=== PATIENT | female | born 1985 | race Caucasian/White ===

== ENCOUNTER → 2016-12-04 | Outpatient (CLI) | payer OTHER ==
[~2016-12-04] MED LIST: PRENTAB26 PO
[2016-12-04 18:29] LABS: URINE APPEARANCE CLEAR (CLEAR); URINE BILIRUBIN NEG (NEG); URINE COLOR YELLOW; URINE NITRITE NEG (NEG); URINE SPECIFIC GRAVITY 1.007 (1.000-1.030); UROBILINOGEN NEG (NEG)
[2016-12-04 18:41] LABS: MANUAL MICROSCOPIC REQUIRED? NO; REVIEW REQ? NO
== END | disposition home or self-care (01) ==
LOC: C.LABSPEC 18:07
PROVIDERS: ATTEND Obstetrics & Gynecology
DX: Z34.90 Encounter for supervision of normal pregnancy, unspecified, unspecified trimester (principal)

== ENCOUNTER → 2016-12-12 | Outpatient (CLI) | payer OTHER ==
[2016-12-12 15:38] LABS: BASO % 0.1 %; BASO ABS # 0.01 K/uL (0-0.2); COMPLETE YES; EOS % 0.9 %; HEMATOCRIT 34.7 % (37-47); IG% 0.2 %; LYMPH % 20.2 %; LYMPH ABS # 2.05 K/uL (1.2-3.4); MEAN CELL VOLUME 81.6 fL (80-100); MEAN CORPUSCULAR HEMOGLOBIN 28.7 pg (25-34); MEAN CORPUSCULAR HGB CONC 35.2 g/dl (32-36); MEAN PLATELET VOLUME 9.3 fL (7.4-10.4); MONO % 4.1 %; NEUT % 74.5 %; PLATELET COUNT 207 K/uL (130-400); RED BLOOD COUNT 4.25 M/uL (4.2-5.4); WHITE BLOOD COUNT 10.13 K/uL (4.8-10.8)
[2016-12-12 16:15] LABS: GTGD 50 Grams
[2016-12-15 00:33] LABS: CHLAMYDIA TRACH RNA*** NOT DETECTED (NOT DETECTED); GC (NEIS GONORRHOEAE)RNA** NOT DETECTED (NOT DETECTED)
== END | disposition home or self-care (01) ==
LOC: C.LAB1850 14:43
PROVIDERS: ATTEND Obstetrics & Gynecology
DX: Z34.82 Encounter for supervision of other normal pregnancy, second trimester (principal)

== ENCOUNTER → 2017-01-31 | Outpatient (CLI) | payer OTHER ==
[2017-01-31 14:23] LABS: URINE APPEARANCE CLEAR (CLEAR); URINE BILIRUBIN NEG (NEG); URINE COLOR YELLOW; URINE NITRITE NEG (NEG); URINE SPECIFIC GRAVITY 1.004 (1.000-1.030); UROBILINOGEN NEG (NEG)
[2017-01-31 14:27] LABS: MANUAL MICROSCOPIC REQUIRED? NO; REVIEW REQ? NO
[2017-01-31 14:44] LABS: HEMATOCRIT 33.4 % (37-47)
[2017-01-31 19:26] LABS: GTGD 50 Grams
== END | disposition home or self-care (01) ==
LOC: C.LAB1850 12:36
PROVIDERS: ATTEND Obstetrics & Gynecology
DX: Z34.83 Encounter for supervision of other normal pregnancy, third trimester (principal)

== ENCOUNTER → 2017-03-29 | Outpatient (CLI) | payer OTHER | END | disposition home or self-care (01) | LOC: C.LABSPEC 11:15 | PROVIDERS: ATTEND Obstetrics & Gynecology | DX: Z34.83 Encounter for supervision of other normal pregnancy, third trimester (principal) ==

== ENCOUNTER 2017-04-17 08:21 | Inpatient (IN) | payer OTHER ==
[~2017-04-17] VITALS: Ht 157.5 cm; Wt 82.3 kg
[2017-04-17] MEDS ORDERED: BENZOCAINE 20% AER SPR 82.5 GM CAN EXT PRN (08:30)
[2017-04-17] MEDS ORDERED: LANOLIN OINT EXT PRN ×2 (08:30)
[2017-04-17] MEDS ORDERED: HYDROCORTISONE ACETATE 25 MG SUPP PR PRN (08:30)
[2017-04-17] MEDS ORDERED: ACETAMINOPHEN 325 MG TAB PO PRN (08:30)
[2017-04-17] MEDS ORDERED: SUPERCREAM 0.870 % 15GM JAR EXT PRN (08:30)
[2017-04-17] MEDS ORDERED: OXYTOCIN 30 UNITS/500ML NSS IV PRN (08:30)
[2017-04-17] MEDS ORDERED: OXYCODONE/ACETAMINOPHEN 5-325 TAB PO PRN (08:30)
--- NOTE | 2017-04-17 08:39 | Vaginal Delivery Summary ---
Vaginal Delivery Summary Patient arrived to L&D in wheelchair in knee-chest position involuntarily pushing. She was moved to a bed, confirmed to be complete and +2, and quickly prepped for delivery. Over the next few contractions she pushed to deliver her male in DOP position with moderate meconium noted in the fluid. The shoulders delivered easily followed by the remainder of the body. Cord was long , and was doubly clamped and cut. Placenta delivered spontaneously and was intact with a 3VC. No lacerations of cervix, vagina or perineum. Fundus firm and 10u IM pitocin given due to inability to obtain IV access prior to this point due to rapid delivery. Mother and infant in good condition.
[2017-04-17] MEDS ORDERED: PATIENT'S ALLERGY INFO NEEDS ENTERED SCH (08:45)
[2017-04-17 09:09] VITALS: BMI 33.2
[2017-04-17] MEDS: IBUPROFEN 600 MG TAB PO PRN ×3 (09:21→23:51)
[2017-04-17 09:59] VITALS: Ht 157.5 cm; Wt 82.3 kg
[2017-04-17] MEDS ORDERED: PRENTAB26 PO (10:00)
[2017-04-17 11:13] VITALS: BP 118/76; PULSE 75; TEMP 36.7
[2017-04-17 15:05] VITALS: BP 109/72; PULSE 87; TEMP 36.7; O2SAT 97
[2017-04-17 15:15] VITALS: BP 118/80; PULSE 89; TEMP 37
[2017-04-17] MEDS: DOCUSATE SODIUM 100 MG CAP PO SCH (19:47)
[2017-04-17 19:55] VITALS: BP 115/81; PULSE 91; TEMP 36.7
[2017-04-17 23:35] VITALS: BP 134/86; PULSE 76; TEMP 36.8; O2SAT 98
[2017-04-18 03:30] VITALS: BP 131/87; PULSE 68; TEMP 36.5; O2SAT 98
--- NOTE | 2017-04-18 06:15 | OB/GYN Progress Note ---
MAILS SUPERVISOR Progress Note Date of Service Apr 18, 2017. Subjective conversation w/ patient, physical exam, chart review, lab review Ambulation: ambulating normally Voiding: no voiding problems Passing Gas: Yes Diet Tolerance: Regular Diet Lochia: Small Feeding Type: Breast Feeding Pain: 0/10 pain Review of Systems Constitutional: No fever Respiratory: No shortness of breath Cardiac: No chest pain Abdomen: No nausea, No vomiting Female : No dysuria Objective Vital Signs Date Time Temp Pulse Resp B/P (MAP) Pulse Ox O2 Delivery O2 Flow Rate FiO2 04/18/17 03:30 36.5 68 20 131/87 (102) 98 Room Air 04/17/17 23:35 36.8 76 18 134/86 (102) 98 Room Air 04/17/17 23:35 98 Room Air 04/17/17 19:55 36.7 91 18 115/81 (92) Room Air 04/17/17 15:15 Room Air 04/17/17 15:15 37.0 89 18 118/80 (93) Room Air 04/17/17 15:05 36.7 87 16 109/72 (84) 97 Room Air 04/17/17 11:16 Room Air 04/17/17 11:13 36.7 75 18 118/76 (90) Room Air Physical Exam General Appearance: WELL-APPEARING Respiratory/Chest: lungs clear, normal breath sounds, no respiratory distress Cardiovascular: regular rate, rhythm Abdomen: normal bowel sounds, non tender, soft Fundus: Firm, Relation to Umbilicus (2 below U) Extremities: non-tender, no pedal edema Laboratory Results Last 24 Hours Test 04/18/17 04:44 Medications Current Inpatient Medications Medications (Trade) Dose Ordered Sig/[place] Route Start Time Stop Time Status Last Admin Dose Admin Oxytocin (Pitocin IV) 30 units UD PRN IV 04/17/17 08:30 05/17/17 08:29 Benzocaine (Dermoplast Aero Spr) 1 appln PRN PRN EXT 04/17/17 08:30 05/17/17 08:29 Cocaine HCl (Supercream 0.870% Cr) BID PRN EXT 04/17/17 08:30 05/01/17 08:29 04/17/17 15:27 15 GM Hydrocortisone Acetate (Anusol Hc Supp) 25 mg BID PRN NH 04/17/17 08:30 05/17/17 08:29 Lanolin (Lanolin Oint) PRN PRN EXT 04/17/17 08:30 05/17/17 08:29 Ibuprofen (Motrin Tab) 600 mg Q4H PRN PO 04/17/17 08:30 05/17/17 08:29 04/17/17 23:51 600 MG Acetaminophen (Tylenol Tab) 650 mg Q6H PRN PO 04/17/17 08:30 05/17/17 08:29 Oxycodone/ Acetaminophen (Percocet 5-325mg Tab) 1 tab Q4H PRN PO 04/17/17 08:30 05/01/17 08:29 Bisacodyl (Dulcolax Tab) 5 mg 20 PO 04/18/17 20:00 04/18/17 20:01 Docusate Sodium (coLACE CAP) 100 mg BID PO 04/17/17 20:00 05/17/17 19:59 04/17/17 19:47 100 MG Assessment and Plan Post- Day Number: 1 Continue Routine Care: A/P: This is a 31 y/o female, , PPD#1 s/p normal vaginal delivery. She is ambulating and clinically stable. Plan: - Vitals signs are reviewed and WNL (Tmax 37 ) - Last Hgb is pending - Blood type A+ , GBS neg, Rubella Immune - Routine care - Encourage ambulation, monitor and control pain with medication as needed, continue with regular diet as tolerated and monitor lochia - Stool softeners and sitz bath recommended - Encourage breast feeding and educate about breast feeding Resident Physician Supervision Note: I was present with Dr. Meier during the history and exam. I discussed the case with the resident and agree with the findings and plan as documented in the note. Any exceptions or clarifications are listed here: PPD#1 doing well. Would like to go home if baby is not circumcised today. Documented By: Chanelle Patterson Resident Involvement: Resident Care Provided Care Provided: OB Delivery
[2017-04-18 07:03] LABS: HEMATOCRIT 32.9 % (37-47)
--- NOTE | 2017-04-18 07:57 | Discharge Instructions ---
Discharge Instructions Date of Service Apr 18, 2017. Admission Reason for Admission: LABOR Discharge Discharge Diagnosis / Problem: after delivery Discharge Goals Goal(s): Routine recovery after delivery Medications Continue Dispensed Medications: supercream, dermaplast, tucks, lansinoh Activity Recommendations Activity Limitations: per Instructions/Follow-up section . Instructions / Follow-Up Instructions / Follow-Up ACTIVITY RECOMMENDATIONS: * Gradual return to full activity over the next 2-3 weeks. * No lifting - nothing heavier than baby over the next 2-3 weeks. * Do not engage in vigorous exercise, sexual activity or sports until cleared by your physician. * Do not drive or operate any motorized equipment until cleared by your physician. * You may shower/bathe daily. MEDICATIONS: For discomfort or pain, you may use Acetaminophen (Tylenol), Ibuprofen (Advil), or Naproxen (Aleve) following the package directions. For constipation you may use Colace following the package directions. BREAST CARE: If you are not breast feeding: * Wear a supportive bra 24 hours a day for one to two weeks. * Avoid stimulating your breasts and nipples as much as possible during the first few weeks after delivery. * When taking a shower, have the warm water hit your back, not breasts. * When your breasts feel full, apply ice packs. Usually three to four times a day helps ease the discomfort. * Take a mild pain medication (Tylenol / Motrin) when you are uncomfortable. If breast feeding: * Use breast milk to lubricate nipples. Lansinoh cream may be used for sore nipples. You do not need to remove cream prior to breast feeding. If using a different brand of cream, check the label for directions regarding removal of cream prior to nursing. * Wear a supportive bra. * If having problems with breasts or breast feeding, call a contaminated land consultant or your health care provider. EPISIOTOMY CARE: After delivery, if you have an episiotomy (stitches), the following steps will ease discomfort and aid healing. * For the first 24 hours after delivery, place ice packs next to your episiotomy to help reduce swelling. * After the first 24 hour-period, sitz baths, either portable or in the tub, are suggested. A shower with a shower arm sprayed over the episiotomy may be comforting. * Dana care should be done after each voiding and bowel movement. Squirt warm water from a plastic bottle over the perineum (region of the body between the anus and urinary opening) and pat dry. * Use Dermoplast to ease discomfort. Shake container. [place] directly over the episiotomy. Place a Tucks on a clean sanitary pad next to your episiotomy. SPECIAL CARE INSTRUCTIONS: When you are discharged from the hospital, it is important for you to follow the instructions listed below: * During the first week at home, you should be able to care for yourself and your baby. In addition, the usual light household activities are encouraged. * Limit your activities to the way you feel. Do not try to clean the house or move furniture. Be sensible. * If you actively engage in sports and have done so up until the time of your delivery, you may resume these activities as soon as you feel able. This may take up to one month or even longer. Use good judgment. * Continue to take your vitamins for at least six weeks after the of your baby. * Your diet need not be limited unless you were on a special diet before your delivery. Breast-feeding mothers need around 2500 calories per day and at least 64-80 ounces of fluid per day (8 to 10 glasses). * You should eat foods from the four major food groups. Crash diets or fad diets are to be avoided. Eating lean meats, fresh fruits and vegetables, low-fat dairy products, high fiber foods and a regular exercise program, will help you get back to your pre- weight without putting your health at risk. * Constipation is sometimes a problem after delivery. Take a mild laxative as needed. If breast feeding, Milk of Magnesia is acceptable to use. You may use a suppository or Fleets enema if no episiotomy. * A daily shower or tub bath is suggested. Be sure to thoroughly and gently dry the perineum. * A bloody vaginal discharge will usually continue until around four weeks post . A small amount of bleeding may continue for as long as six weeks. Vaginal discharge changes from the bright red bleeding after delivery to pink then brownish and finally yellowish-pink before becoming white and disappearing. * Bleeding may increase with activity. Your first period may come in 4-8 weeks. If you are breast feeding, your period may be delayed even longer. * [place] (sex) can begin whenever both you and your partner feel comfortable and do not have any form of genital infection. It is recommended that you wait at least six weeks for internal and external healing to occur. If you have questions, please talk to your health care practitioner. A condom should be used to prevent infection and . * Foreplay, gentle intercourse and lubrication is very important the first several times to prevent pain. A water-based lubricant such as K-Y jelly or Astroglide may be used. * If you have RH negative blood and your baby is RH positive, you will receive RHOGAM by injection prior to discharge. The nurse will give you a card to keep with you that has the date and place that you received RHOGAM after delivery. * During your care, you had a Rubella screen done to check for the presence of rubella antibodies in your blood. If your test was negative, you will receive a Rubella vaccine prior to discharge. This vaccine may cause a fever, soreness at the injection site and flu-like symptoms. If these symptoms persist, notify your health care practitioner. is not advised for one month after a Rubella vaccine. * Verbalizes understanding of car seat law as reviewed with patient nursing. * Car Seat hand-out given and reviewed with patient by nursing. * Shaken baby information reviewed with patient by nursing. Call you doctor if: * Heavy bleeding (saturating several pads an hour) or passing clots the size of your fist. * A fever >101 degrees F (38.3 degrees C) on two occasions four hours apart and /or chills. * Unusual pain in the pelvic or vaginal areas. * "Baby Blues" lasting longer than two weeks. If you have any questions or concerns, call your health care practitioner at . FOLLOW UP VISIT: * Please call the office at to schedule a 6 week examination. It is important you keep this appointment. It is important for you to make arrangements for either yearly or twice yearly check-ups thereafter. Current Hospital Diet Patient's current hospital diet: Regular OB Diet, Gluten Free Diet Discharge Diet Recommended Diet: Regular Diet Pending Studies Studies pending at discharge: no Medical Emergencies . Who to Call and When: Medical Emergencies: If at any time you feel your situation is an emergency, please call [phone] immediately. . Non-Emergent Contact Non-Emergency issues call your: [employer] . . "Provider Documentation" section prepared by Gordon Meier. . VTE Core Measure Inpt VTE Proph given/why not?: Treatment not indicated
[2017-04-18 08:35] VITALS: BP 132/86; PULSE 87; TEMP 36.6
[2017-04-18] MEDS: DOCUSATE SODIUM 100 MG CAP PO SCH (08:37)
[2017-04-18 14:25] VITALS: BP_DIAS 86; PULSE 87; TEMP 36.6
[2017-04-18] MEDS ORDERED: BISACODYL 5 MG TABEC PO SCH (20:00)
== END 2017-04-18 14:30 | disposition home or self-care (01) | DRG 775 ==
LOC: C.LD 08:21 → C.OBG 11:08
PROVIDERS: ADMIT Obstetrics & Gynecology; ATTEND Obstetrics & Gynecology
PROC: 10E0XZZ Delivery of Products of Conception, External Approach (ICD-10-PCS; principal; 2017-04-17)
DX: O80 Encounter for full-term uncomplicated delivery (principal); Z3A.39 39 weeks gestation of pregnancy; Z37.0 Single live birth